=== PATIENT | male | born 1925 | race Caucasian/White ===

== ENCOUNTER → 2016-09-19 | Outpatient (CLI) | payer MEDICARE, OTHER ==
[~2016-09-19] MED LIST: ASCO500T9 PO; DOCU100T PO; HYDR-4246 PO; IOHEXOL 350 MG/ML 75ml INJECTION ONE; NORMAL SALINE 100 ML ONE; OXYB5TAB10 PO; SALINE FLUSH 10ml SYRINGE ONE; TAMS-1 PO; WARF3TAB29 PO; WARF4TAB41 PO
[2016-09-19 08:50] LABS: HCT - HEMATOCRIT 46.8 % (41-53); HGB - HEMOGLOBIN 15.5 GM/DL (13.5-17.5); MEAN CORPUSCULAR HGB 30.5 UUG (26-34); MEAN CORPUSCULAR HGB CONC(MCHC 33.1 GM/DL (31-37); MEAN CORPUSCULAR VOLUME 92.1 UM3 (80-100); MEAN PLATELET VOLUME 8.9 UM3 (9.4-12.4); RED BLOOD COUNT 5.08 M/MM3 (4.50-5.90)
[2016-09-19 08:59] LABS: ANION GAP 10 MEQ/L (5-15); BUN/CREATININE RATIO 13 RATIO (6-26); CHLORIDE 103 MEQ/L (98-107); CO2 - CARBON DIOXIDE 28 MEQ/L (22-30); CREATININE 1.2 MG/DL (0.8-1.5); GLOMERULAR FILTRATION RATE 57; GLUCOSE 98 MG/DL (75-110); POTASSIUM 4.5 MEQ/L (3.6-5); SODIUM 141 MEQ/L (134-144)
[2016-09-19 09:15] LABS: WBC - WHITE BLOOD COUNT 25.7 T/MM3 (4.5-11.0)
[2016-09-19 09:28] LABS: EOSINOPHILS # (MANUAL) 0.3 T/MM3 (0-0.5); LYMPHOCYTES # (MANUAL) 19.5 T/MM3 (1-4.8); NEUTROPHILS #(MANUAL)-ABSOLUTE 5.9 T/MM3 (1.8-7.7); SMUDGE CELLS 1+; TOTAL CELLS COUNTED 100 %
[2016-09-19 09:29] LABS: BURR CELLS 1+; OVALOCYTES 1+; POIKILOCYTOSIS 1+
--- NOTE | 2016-09-19 11:39 | DI ---
Indication: ITS.REASON: SUDDEN ONSET BLINDNESS OD PROCEDURE: CTA head and neck W/WO CONTRAST: Encounter: Initial Comparison: Head CT dated June 26, 2016 Technique: Axial CT angiography of the head and neck was performed with and without contrast. Coronal and sagittal two-dimensional reformatted images were created and reviewed. Three-dimensional surface shaded volume rendered imaging of the arterial vasculature of the head and neck and [employer] [facility] [employer] was created by the technologist on a dedicated workstation under the direction of the interpreting radiologist and reviewed. Automated Exposure Control and Iterative Reconstruction dose reducing techniques were utilized. Contrast: Omnipaque 300 74mL Findings: CT angiogram of the neck with and without contrast: Scattered bilateral upper lobe pulmonary nodules ranging from 3 to 7 mm in size. Patulous dilated esophagus containing debris. Thyroid gland is grossly unremarkable. Scattered mediastinal lymph nodes are not pathologically enlarged. Atherosclerotic plaque in both carotid bulbs and proximal ICAs. Postcontrast images show a two-vessel aortic arch, a normal anatomic variant. Evaluation is somewhat limited due to patient body habitus and attenuation artifact. Narrowing of the right internal carotid artery at its origin. The remaining luminal diameter is approximately 1 mm compared to a more normal vessel diameter of 5 mm more cranially yielding an 80% stenosis. Left ICA origin is also narrowed to 2 mm compared to 5 mm more cranially consistent with a 60% stenosis by an NASCET criteria. No occlusion or aneurysm identified. No additional areas of stenosis appreciated. The left vertebral artery is dominant. There is no significant stenosis seen in either vertebral artery. Impression: 1. 80% right proximal ICA stenosis with 60% left proximal ICA stenosis by NASCET criteria. 2. Small bilateral upper lobe pulmonary nodules could be due to metastases or granulomas. Dedicated chest CT may be helpful for further evaluation. CTA head with and without contrast: Noncontrast images show no gross intracranial hemorrhage, mass effect or midline shift. Moderate generalized atrophy. Postcontrast imaging shows no evidence of intracranial aneurysm or vascular occlusion. Atherosclerotic plaque in the carotid siphons with mild areas of stenosis. Posterior circulation is unremarkable. Vertebrobasilar system is grossly normal. No arterially enhancing mass lesions appreciated. Bone windows show no acute fractures. Left frontoethmoidal sinus opacification. Impression: No acute intracranial abnormality. No evidence of aneurysm or occlusion. .
== END ==
LOC: IMA 08:19
PROVIDERS: ATTEND Internal Medicine Cardiovascular Disease
DX: I65.23 Occlusion and stenosis of bilateral carotid arteries (principal); R91.8 Other nonspecific abnormal finding of lung field; H53.131 Sudden visual loss, right eye
CPT/HCPCS: 36415; 70496; 70498; 80048; 85025; 85652; J7050; Q9967

== ENCOUNTER 2017-05-05 12:59 | Observation (INO) ==
--- NOTE | 2017-05-05 13:15 | Emergency Department Report ---
General Adult HPI - General Chief complaint: Fever Stated complaint: urinary retention Time Seen by Provider: 05/05/17 13:12 Source: patient, family () Mode of arrival: EMS Limitations: no limitations - History of Present Illness HPI narrative: He is brought in by EMS today from his own home where he lives with his . She states that he has been having some trouble with increased weakness the last few days. Today he was trying to transfer from the bed to his chair and fell to the floor. Does not have any injury but she was unable to assist him to get up. She called for EMS. He does have a tovar catheter secondary to trouble with urinary retention. This was placed in ER 4 days ago. Onset (ago): day(s) (for the last 2 days) Radiation: non-radiation Severity: moderate Consistency: constant Relieving factors: none Exacerbating factors: movement Associated symptoms: fever/chills (low grade temp), weakness Treatments prior to arrival: none - Related Data Home Medications Medication Instructions Recorded Confirmed Ascorbic Acid [Vitamin C] 500 mg PO DAILY #0 06/26/16 05/05/17 Docusate Sodium 100 mg PO DAILY #0 06/26/16 05/05/17 Tamsulosin HCl [Flomax] 0.4 mg PO HS #0 06/26/16 05/05/17 Hydrocodone/APAP 5/325 [[place] 1 tab PO Q6H PRN 05/05/17 05/05/17 5/325] Triamcinolone Acetonide 1 applicatio TOP BID PRN 05/05/17 05/05/17 Warfarin [Coumadin] 2 mg PO ROBERTSON@1700 05/05/17 05/05/17 Warfarin [Coumadin] 3 mg PO MOTUWETHFRSA@1700 05/05/17 05/05/17 Allergies Allergy/AdvReac Type Severity Reaction Status Date / Time Penicillins Allergy Unknown REDNESS, Verified 05/05/17 13:22 SWELLING Review of Systems Constitutional: Reports: fever, chills, weakness ENT: Denies: ear pain, throat pain, congestion Cardiovascular: Denies: chest pain, palpitations, dyspnea on exertion, edema Respiratory: Denies: cough, dyspnea, wheezes Gastrointestinal: Denies: abdominal pain, nausea, vomiting, diarrhea Genitourinary: Reports: other (tovar catheter in place) Integumentary: Denies: rash Neurological: Reports: weakness. 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) Chronic atrial fibrillation (Chronic Medical) Post herpetic neuralgia (Chronic Medical) Left arm Pulmonary nodules (Chronic Medical) Upper lobe Venous stasis (Chronic Medical) 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 (Resolved Medical) Personal history of pulmonary embolism (Resolved Medical) Acute retention of urine (Inactive Medical) Family History: Family History Father , Age 70 Parkinson's disease Mother , Age 92 Heart disease Sister Myocardial infarction Daughter Celiac disease Daughter Hypertension Son Coronary artery disease Hypertension Son Coronary artery disease - Social History Smoking status: Never smoker Physical Exam - Limitations Limitations: no limitations - General General appearance: alert, in no apparent distress - Normal Exams: Neck:: Full range of motion, without adenopathy, JVD, bruits or thyromegaly Chest/Respirations:: Clear all ceja, with good airflow, and symmetry bilaterally Cardiovascular:: Regular rate and rhythm, without murmur or gallop, Pulses 2+ all extremities, capillary refill, <2 seconds all extremities Abdomen:: Bowel sounds positive, soft, non-tender, non-distended, no hepatosplenomegaly, masses or bruits noted Lymphatic:: No lymphadenopathy, or lymphedema noted Integumentary:: No rashes, hives, or bruising noted Neurological:: Patient is alert, and oriented Psychiatric:: Patient exhibits, appropriate attention, emotion and affect Course Vital Signs Temperature 98.1 F 05/05/17 13:15 Pulse Rate 85 05/05/17 13:15 Respiratory Rate 28 H 05/05/17 13:15 Blood Pressure 115/57 05/05/17 13:15 Pulse Oximetry 97 05/05/17 13:15 Temperature 98.1 F 05/05/17 13:15 Pulse Rate 91 05/05/17 15:00 Respiratory Rate 22 05/05/17 15:00 Blood Pressure 131/78 05/05/17 15:00 Pulse Oximetry 96 05/05/17 15:00 Medical Decision Making - MDM Narrative Medical decision making narrative: Chest xray today was negative. He does have UTI on labs. WBC is elevated but without left shift. He does have history of CLL. Given his symptoms and reported fever did discuss with Dr Palafox. Will place in OBS at this time and monitor labs and vitals. His daughter does request that we removed the tovar as this is likely the source of infection. - Differential Diagnosis DD: UTI, Sepsis, hypo/hypernatremia, hypo/hyperkalemia, generalized weaknes - Lab Data Result diagrams: 05/05/17 13:23 05/05/17 13:23 Lab Results 05/05/17 05/05/17 05/05/17 Range/Units 13:23 13:23 13:23 WBC 26.6 H* (4.5-11.0) T/MM3 RBC 4.44 L (4.50-5.90) M/MM3 Hgb 13.7 (13.5-17.5) GM/DL Hct 41.4 (41-53) % MCV 93.2 (80-100) UM3 MCH 30.9 (26-34) UUG MCHC 33.1 (31-37) GM/DL RDW Std Deviation 44.4 (36.9-50.2) FL Plt Count 213 (130-400) T/MM3 MPV 9.3 L (9.4-12.4) UM3 Immature Gran % (Auto) Not performed Neut % (Auto) Not performed Lymph % (Auto) Not performed [place] % (Auto) Not performed Eos % (Auto) Not performed Baso % (Auto) Not performed Neut # (Auto) Not performed Lymph # (Auto) Not performed [place] # (Auto) Not performed Eos # (Auto) Not performed Baso # (Auto) Not performed Abs Immat Gran (auto) Not performed Neutrophils % (Manual) 29.0 L (33-66) % Lymphocytes % (Manual) 69.0 H (23-45) % Monocytes % (Manual) 1.0 (0-9.0) % Eosinophils % (Manual) 1.0 (0-4) % Neutrophils # (Manual) 7.7 (1.8-7.7) T/MM3 Lymphocytes # (Manual) 18.4 H (1-4.8) T/MM3 Monocytes # (Manual) 0.3 (0-0.8) T/MM3 Eosinophils # (Manual) 0.3 (0-0.5) T/MM3 Smudge Cells 1+ RBC Morph Comment Normal INR 3.58 H (0.99-1.21) Turbidity < 20 (0-20) Sodium 132 L (134-144) MEQ/L Potassium 4.9 (3.6-5) MEQ/L Chloride 100 (98-107) MEQ/L Carbon Dioxide 25 (22-30) MEQ/L Anion Gap 7 (5-15) MEQ/L BUN 12.0 (9-20) MG/DL Creatinine 1.0 (0.8-1.5) MG/DL GFR Calculation 70 BUN/Creatinine Ratio 12 (6-26) RATIO Glucose 119 H (75-110) MG/DL Calculated Osmolality 256 L (261-280) MOSM/KG Calcium 8.5 (8.4-10.2) MG/DL Total Bilirubin 1.30 (0.20-1.30) MG/DL Icterus Index < 2 (0-7) AST 20 (17-59) U/L ALT 27 (21-72) U/L Alkaline Phosphatase 71 (38-126) U/L Troponin I < 0.012 (0-0.12) ng/ml Total Protein 6.6 (6.3-8.2) G/DL Albumin 3.8 (3.5-5.0) G/DL Globulin 2.8 (2.4-3.6) G/DL Albumin/Globulin Ratio 1.4 (1.1-2.2) RATIO Plasma Lactate (0.6-2.2) MMOL/L Procalcitonin NG/ML Specimen Hemolysis < 15 (0-25) Ur Collection Type Urine Color (YELLOW) Urine Clarity Urine pH (5.0-8.0) Ur Specific [place] (1.015-1.025) Urine Protein (NEGATIVE) Urine Glucose (UA) (NEGATIVE) Urine Ketones (NEGATIVE) Urine Occult Blood (NEGATIVE) Urine Nitrate (NEGATIVE) Urine Bilirubin (NEGATIVE) Urine Urobilinogen (NORMAL) EU/DL Ur Leukocyte Esterase (NEGATIVE) Urine RBC (0-3) /HPF Urine WBC (0-5) /HPF Ur Transition Epith Cell /HPF Urine Bacteria (NEGATIVE) Ur Culture Indicated? 05/05/17 05/05/17 05/05/17 Range/Units 14:08 14:31 14:31 WBC (4.5-11.0) T/MM3 RBC (4.50-5.90) M/MM3 Hgb (13.5-17.5) GM/DL Hct (41-53) % MCV (80-100) UM3 MCH (26-34) UUG MCHC (31-37) GM/DL RDW Std Deviation (36.9-50.2) FL Plt Count (130-400) T/MM3 MPV (9.4-12.4) UM3 Immature Gran % (Auto) Neut % (Auto) Lymph % (Auto) [place] % (Auto) Eos % (Auto) Baso % (Auto) Neut # (Auto) Lymph # (Auto) [place] # (Auto) Eos # (Auto) Baso # (Auto) Abs Immat Gran (auto) Neutrophils % (Manual) (33-66) % Lymphocytes % (Manual) (23-45) % Monocytes % (Manual) (0-9.0) % Eosinophils % (Manual) (0-4) % Neutrophils # (Manual) (1.8-7.7) T/MM3 Lymphocytes # (Manual) (1-4.8) T/MM3 Monocytes # (Manual) (0-0.8) T/MM3 Eosinophils # (Manual) (0-0.5) T/MM3 Smudge Cells RBC Morph Comment INR (0.99-1.21) Turbidity (0-20) Sodium (134-144) MEQ/L Potassium (3.6-5) MEQ/L Chloride (98-107) MEQ/L Carbon Dioxide (22-30) MEQ/L Anion Gap (5-15) MEQ/L BUN (9-20) MG/DL Creatinine (0.8-1.5) MG/DL GFR Calculation BUN/Creatinine Ratio (6-26) RATIO Glucose (75-110) MG/DL Calculated Osmolality (261-280) MOSM/KG Calcium (8.4-10.2) MG/DL Total Bilirubin (0.20-1.30) MG/DL Icterus Index (0-7) AST (17-59) U/L ALT (21-72) U/L Alkaline Phosphatase (38-126) U/L Troponin I (0-0.12) ng/ml Total Protein (6.3-8.2) G/DL Albumin (3.5-5.0) G/DL Globulin (2.4-3.6) G/DL Albumin/Globulin Ratio (1.1-2.2) RATIO Plasma Lactate 1.2 (0.6-2.2) MMOL/L Procalcitonin < 0.05 NG/ML Specimen Hemolysis (0-25) Ur Collection Type Urine, tovar chronic Urine Color Yellow (YELLOW) Urine Clarity Sl cloudy Urine pH 7.0 (5.0-8.0) Ur Specific [place] 1.015 (1.015-1.025) Urine Protein 1+ A (NEGATIVE) Urine Glucose (UA) Negative (NEGATIVE) Urine Ketones Negative (NEGATIVE) Urine Occult Blood 3+ A (NEGATIVE) Urine Nitrate Positive A (NEGATIVE) Urine Bilirubin Negative (NEGATIVE) Urine Urobilinogen 1.0 (NORMAL) EU/DL Ur Leukocyte Esterase 1+ A (NEGATIVE) Urine RBC 30-50 H (0-3) /HPF Urine WBC 1-3 (0-5) /HPF Ur Transition Epith Cell 1-3 /HPF Urine Bacteria 3+ H (NEGATIVE) Ur Culture Indicated? Cult reflexed &setup - Radiology Data Radiology results reviewed: Yes: I reviewed the patient's radiology results. Date of Exam: 05/05/17 Ordering Provider: Marisol Reyes APRN Type of Exam(s): XR chest 1V Reason for Exam(s): fever, shortness of breath Indication: fever, shortness of breath PROCEDURE: XR chest 1V: Encounter: Initial Comparison: None. Findings: There is cardiomegaly and pulmonary vascular congestion without definite overt interstitial pulmonary edema. There is mild elevation of the right diaphragm. There is moderate degenerative disc disease of the thoracic spine. Trachea is midline. There is prominence of the right paratracheal soft tissues which is probably vascular. Impression: Cardiomegaly and poor may vascular congestion without overt CHF. . Disposition Clinical Impression: Urinary tract infection Qualifiers: Urinary tract infection type: acute cystitis Hematuria presence: without hematuria Qualified Code(s): N30.00 - Acute cystitis without hematuria Disposition: 02 [place] [facility] [place]position: 16:13 - Seen By: midlevel
--- NOTE | 2017-05-05 13:52 | XRay Report ---
Indication: fever, shortness of breath PROCEDURE: XR chest 1V: Encounter: Initial Comparison: None. Findings: There is cardiomegaly and pulmonary vascular congestion without definite overt interstitial pulmonary edema. There is mild elevation of the right diaphragm. There is moderate degenerative disc disease of the thoracic spine. Trachea is midline. There is prominence of the right paratracheal soft tissues which is probably vascular. Impression: Cardiomegaly and poor may vascular congestion without overt CHF. .
--- OUTSIDE RECORDS SUMMARY | 2017-05-05 13:59 | External Medical Summary ---
:1925 Author Organization [employer] Care Team Providers Name Role Phone Amanda Gonzalez Provider Role Unavailable Allergies, Adverse Reactions, Alerts Substance Reaction Event Type PCN Info Not Available Non Drug Allergy Problems Problem Type Condition Code Onset Dates Condition Status Assessment Dyspnea, unspecified R06.00 Active Problem Pulmonary emboli I26.99 Active Problem Angina pectoris I20.9 Active Problem Atrial fibrillation I48.91 Active Assessment Pulmonary emboli I26.99 Active Assessment Angina pectoris I20.9 Active Problem Dyspnea, unspecified R06.00 Active Assessment Atrial fibrillation I48.91 Active Medications Medication Code System Code Instructions Start End Date Status Dosage Date Vitamin C NDC 05661-87 500 MG Orally 1 tablet 44-20 Once a day Cataplex NDC 0 1 tablet qd E2 Oxybutynin NDC 29165-34 5 MG Orally 1 tablet Chloride 00-20 Twice a day Docusate Sodium NDC 95982-15 100 MG Orally 1 capsule 65-30 prn as needed Tamsulosin NDC 0 0.4 MG Once day 1 tablet Warfarin Sodium NDC 96081-50 4 MG Orally as 1 tablet 04-01 dir. Hydrocodone-Dru NDC 94692-86 5-325 MG Orally 1 tablet as taminophen 12-20 prn needed Procedures Procedure Coding System Code Date Office Visit, Est Pt., Level 4 CPT-4 41008 August 16, 2015 ELECTROCARDIOGRAM, COMPLETE CPT-4 87553 August 16, 2015 Vital Signs Date/Time: August 16, 2015 BMI 26.92 Index Weight 193 lbs Height 71 in Cardiac Monitoring Heart Rate 77 /min Oximetry 91% % Blood Pressure Diastolic 70 mm Hg Blood Pressure Systolic 110 mm Hg Results No Known Results Summary Purpose [employer] Submission
[2017-05-05] MEDS ORDERED: LEVOFLOXACIN PB 750 MG/150 ML BAG IV SCH (14:15)
[2017-05-05] MEDS ORDERED: NS 1,000 ML IV ONE (14:21)
[2017-05-05] MEDS ORDERED: CEFTRIAXONE (ER USE ONLY) 1 GM in NS 100 ML IV ONE (14:29)
--- NOTE | 2017-05-05 15:44 | History & Physical Report ---
History of Present Illness Date: 05/05/17 Chief complaint: weak legs HPI: Fareed Land is an 89 year old male who resides at [facility]. He has a hx of dementia and most of the history is obtained from his and daughter. He had a cystoscopy by Dr. Tao on Apr 30 to evaluate for leg weakness and retention. The following night, he hardly slept at all. He presented to [facility] the morning of 05/02/17 with abdominal pain and urinary retention, and a Rose was inserted. He was not Rx abx at that time. Over the weekend, leg weakness persisted. 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 He wasn't eating or drinking well, but denies nausea/vomiting. He's been c/o left side abdominal pain, which tends to occur when he gets sick. His urine has been very dark in color and output has decreased. They deny seeing any blood or clots. He has not had any diarrhea or constipation. No fever/ chills at home but they report a fever upon arrival to the ED. They deny any respiratory or URI symptoms. He denies chest pain, but has a hx of an irregular HR (A-fib) for which he takes Coumadin. Family hasn't noticed any abnormal behaviors or mental status changes other than his baseline confusion. No dysphagia, unilateral weakness or paresthesias. He denies back pain or injuries. 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 Because of his leg weakness, he was re-eval in the eD on 05/05/17. Labs showed leukocytosis but at baseline (26.6 - hx of CLL ) with lymphocyte predominance. He was mildly hyponatremic with Na of 132. INR was supratherapeutic at 3.58. CXR did not show overt pneumonia. UA from cath showed hematuria and bacteruria with positive nitrites, and was sent for culture. Lactate and procalcitonin were unremarkable. He was given a dose of Rocephin and 1L NS. Dr. Palafox was notified and the patient was admitted to observation status. Review of Systems All systems PM: 10-point ROS was reviewed, no additional remarkable complaints except - Constitutional Constitutional: Present: as per HPI - EENMT Eyes: Present: loss of vision (right eye blind - chronic) Mouth/Throat: Present: as per HPI - Cardiovascular Cardiovascular: Present: as per HPI Vascular: Absent: pedal edema - Respiratory Respiratory: Present: as per HPI - Gastrointestinal Gastrointestinal: Present: as per HPI - Genitourinary Genitourinary: Present: as per HPI - Musculoskeletal Musculoskeletal: Present: as per HPI - Integumentary/Breasts Integumentary: Absent: wounds - Neurological Neurological: Present: as per HPI - Psychiatric Psychiatric: Present: as per HPI - Endocrine Endocrine: Absent: excessive sweating - Hematologic/Lymphatic Hematologic/Lymphatic: Present: easy bleeding, easy bruising PFSH 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 B/L knees. B/L cataracts Family History: Family History Father , Age 70 Parkinson's disease Mother , Age 92 Heart disease Sister Myocardial infarction Daughter Celiac disease Daughter Hypertension Son Coronary artery disease Hypertension Son Coronary artery disease - Social History Smoking status: Never smoker Substance use type: does not use Alcohol intake frequency: does not drink Social history: PCP: Dr. Mathews Moved to [place] from [place] in Jul, 2015 Does not see an oncologist Medications Home Medications Medication Instructions Recorded Confirmed Type Ascorbic Acid [Vitamin C] 500 mg PO DAILY #0 06/26/16 05/05/17 History Docusate Sodium 100 mg PO DAILY #0 06/26/16 05/05/17 History Tamsulosin HCl [Flomax] 0.4 mg PO HS #0 06/26/16 05/05/17 History Hydrocodone/APAP 5/325 [[place] 1 tab PO Q6H PRN 05/05/17 05/05/17 History 5/325] Triamcinolone Acetonide 1 applicatio TOP BID PRN 05/05/17 05/05/17 History Warfarin [Coumadin] 2 mg PO ROBERTSON@1700 05/05/17 05/05/17 History Warfarin [Coumadin] 3 mg PO MOTUWETHFRSA@1700 05/05/17 05/05/17 History Allergies Allergy/AdvReac Type Severity Reaction Status Date / Time Penicillins Allergy Unknown REDNESS, Verified 05/05/17 13:22 SWELLING Exam Vital Signs: Temperature 98.1 F 05/05/17 13:15 Pulse Rate 91 05/05/17 15:00 Respiratory Rate 22 05/05/17 15:00 Blood Pressure 131/78 05/05/17 15:00 Pulse Oximetry 96 05/05/17 15:00 Telemetry Rhythm: A-fib - Constitutional Present: no acute distress, well nourished, well developed - Routine HEENT Exam Head: Present: normocephalic Eye: Absent: conjunctival icterus, scleral injection ENT: Present: mucous membranes dry, oropharynx clear. Absent: dentition normal (some decay) - Routine Neck Exam Present: supple - Routine Respiratory Exam Present: CTA bilaterally - Routine Cardiovascular Exam Present: irregularly irregular - Routine Abdominal Exam Present: normoactive bowel sounds, tenderness (LUQ and LLQ), distended, guarding (LLQ - mild) - Routine Extremities Exam Present: no edema, pulses intact - Routine Back/Spine/Pelvis Exam Back/Spine: Absent: vertebral tenderness - Routine Skin Exam Present: intact, dry, warm. Absent: rash - Routine Neurological Exam Present: alert, CN II-XII intact, moving all extremities, vision grossly intact , hearing grossly intact, normal speech. 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 PCP: Dr. Mathews. Possible UTI -Rocephin -consider consulting Dr. Tao Abdominal tenderness -CT abd/pelvis -Check lipase; LFTs normal; renal function normal Anorexia -check prealbumin, TSH Hyponatremia -IVF Leg weakness -Supportive care -consult PT/OT Leukocytosis, CLL -WBC elevated at baseline -consider referral to oncologist Advanced Directives -Daughters are DPOAs; + living will -Sis would like him to be DNR and dtr in agreement - he doesn't have signed form from [facility] - will need more discussion with both DPOAs before making DNR 05/05/17: Vivienne Have independently interviewed and examined pt. Chart reviewed. Case discussed with ED provider, family, and my BENEFITS DIRECTOR. Care plan developed with my supervision; agree with above. Patient presents to ED for evaluation of leg weakness. Problems have been increasing over last month. Was seen in Dr Mathews's office for increasing weakness and urinary difficulty - concern for UTI but UA unremarkable. Seen by urology. Underwent cystoscopy on 04/30 which was unremarkable. Has had several recent UA that were unremarkable. Patient has been on Oxybutynin for several years-looks like this was stopped recently. Did present to ED on 05/02 - urinary retention. Bladder scan with 251cc - patient not able to void. Rose place (no UA done at that time). Since discharge from ED, legs have continued to be weak. Oral drive decreased. No eating or drinking well. No nausea. Does report LUQ pain (family notes he gets this discomfort when he is sick). Evaluated in ED today. Urine does show evidence for infection. Sodium decreased at 132. Patient placed in OBS status for further evaluation. Lungs: decreased, no crackles or wheezes. CV: irregularly irregular Ext: no edema Plan: OBS admission. Rocephin for urinary coverage - recommend against Levaquin due to his dementia. Will remove Rose secondary to UTI-bladder scans to assess for retention. IVF of NS at 50cc/hr to help with low serum sodium and maintain hydration. Continue Flomax-stop oxybutynin (nursing confirms that pt has not been using). PT/OT to help weakness. Monitor lab. DVT Prophylaxis: Coumadin Resuscitation Status: Full Code Hospital Course Summary Disclaimer: The visit summary below is not to be considered part of the above Progress Note. 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 PCP: Dr. Mathews. Possible UTI -Rocephin -consider consulting Dr. Tao Abdominal tenderness -CT abd/pelvis -Check lipase; LFTs normal; renal function normal Anorexia -check prealbumin, TSH Hyponatremia -IVF Leg weakness -Supportive care -consult PT/OT Leukocytosis, CLL -WBC elevated at baseline -consider referral to oncologist Advanced Directives -Daughters are DPOAs; + living will -Sis believes he's DNR but on an accompanying form this is contradictory - will clarify from [facility]
[2017-05-05] MEDS ORDERED: ONDANSETRON 4 MG/2 ML INJECTION IVP PRN (16:09)
[2017-05-05 16:12] VITALS: BMI 28.1
[2017-05-05] MEDS ORDERED: SALINE FLUSH 10ml SYRINGE ONE (16:24)
[2017-05-05] MEDS ORDERED: IOHEXOL 300mg/ml 100ml INJECTION ONE (16:24)
[2017-05-05] MEDS ORDERED: NS 100 ML ONE (16:24)
[2017-05-05] MEDS: NS 1,000 ML IV SCH (17:07)
--- NOTE | 2017-05-05 17:32 | Pharmacy Consult ---
Pharmacy Consult-Warfarin - Consult Information 89 y.o. Male with history of a. fib and chronic anticoagulation with warfarin. Warfarin per pharmacy protocol ordered. Home warfarin dose 3 mg po daily except 2 mg on Friday. goal INR range= 2.0 to 3.0 INR on admit = 3.58, will give no warfarin dose today. Levaquin and ceftriaxone given in ER. both of these antibiotics have the potential to interact with warfarin and may increase INR and risk of bleeding. Thank you for the Warfarin protocol, Aviva Napoles RPh
[2017-05-05] MEDS ORDERED: TAMSULOSIN 0.4 MG CAPSULE PO SCH (21:00)
[2017-05-05] MEDS: HYDROCODONE/APAP 5mg/325mg TABLET PO PRN (21:47)
[2017-05-05] MEDS ORDERED: HALOPERIDOL 5 MG/ML INJECTION IVP ONE (23:45)
[2017-05-06] MEDS ORDERED: HALOPERIDOL 5 MG/ML INJECTION IVP PRN (00:43)
[2017-05-06] MEDS: HYDROCODONE/APAP 5mg/325mg TABLET PO PRN (05:44)
[2017-05-06 07:35] VITALS: TEMP 97.8
--- NOTE | 2017-05-06 07:44 | Pharmacy Consult ---
Pharmacy Consult-Warfarin - Laboratory Information 05/06/17 04:48 INR 4.39 H - Consult Information 89 y.o. Male with history of a. fib and chronic anticoagulation with warfarin. Warfarin per pharmacy protocol ordered. Home warfarin dose 3 mg po daily except 2 mg on Friday. goal INR range= 2.0 to 3.0 INR on admit 05/05/17 = 3.58 05/06/17 = 4.39 Will continue to hold warfarin and monitor INR. Thank you. Peyton Parikh, PharmD
--- NOTE | 2017-05-06 08:57 | CT Scan Report ---
Indication: LUQ, LLQ tenderness PROCEDURE: CT abdomen pelvis w con: Encounter: Initial Comparison: None Technique: Axial CT images were performed through the abdomen and pelvis after the administration of intravenous contrast. Coronal and sagittal two-dimensional reformats. Automated Exposure Control and Iterative Reconstruction dose reducing techniques were utilized. Contrast: Omnipaque 300 99 mL Findings: Consolidation in the right lower lobe. Patulous esophagus. Elevated right hemidiaphragm. Small probable cysts within the liver. Colonic interposition anterior to the right lobe of the liver. The gallbladder is grossly unremarkable. No bile duct dilatation. The spleen is unremarkable. There is prominence of the main pancreatic duct within the atrophic fatty replaced pancreas. No discrete masses seen. The adrenal glands are normal. Small bilateral renal cysts. No abdominal or pelvic lymphadenopathy. The bladder is normal. Prostate is mildly enlarged. Mild colonic diverticulosis without acute diverticulitis. No evidence of a bowel obstruction. Bone windows show degenerative changes in the spine. Impression: 1. No acute disease process seen in the abdomen or pelvis. 2. Right basilar atelectasis or scarring. .
[2017-05-06] MEDS ORDERED: CEFTRIAXONE 1 G in NS 100 ML IV SCH ×2 (09:00)
[2017-05-06] MEDS ORDERED: ASCORBIC ACID 500 MG TABLET PO SCH (09:00)
[2017-05-06] MEDS ORDERED: DOCUSATE SODIUM 100 MG CAPSULE PO SCH (09:00)
[2017-05-06] MEDS ORDERED: HALOPERIDOL 5 MG/ML INJECTION IM PRN (09:17)
--- NOTE | 2017-05-06 12:06 | CT Scan Report ---
Indication: LE weakness, confusion - ? stroke PROCEDURE: CT head/brain wo con: Encounter: Initial Comparison: 03/26/2017 Technique: Axial CT images through the head were performed without contrast. Iterative Reconstruction dose reducing technique was utilized. FINDINGS: Moderate generalized atrophy. The ventricles are prominent but unchanged. There are scattered areas of low attenuation in the white matter which most likely represent changes from chronic microvascular ischemia. The brainstem, cerebellum, and cerebral hemispheres otherwise have a normal morphology and CT attenuation. There is no evidence of midline displacement. No hemorrhage, signs of acute territorial stroke, mass effect, mass lesions, or edema is evident. The visualized portions of the skull base, midface, and calvarium demonstrate no acute abnormality. Chronically opacified left frontal sinus. The tympanic and mastoid cavities appear normal. IMPRESSION: No acute intracranial abnormality or hemorrhage. Stable head CT. .
[2017-05-06] MEDS: NS 1,000 ML IV SCH (13:25)
--- NOTE | 2017-05-06 15:16 | Progress Note ---
- Date 05/06/17 Subjective: F/U: Urinary tract infection, urinary retention Feeling okay today-no f/c. Eating well. No nausea. Not having ab pain. Breathing stable-does not feel he is becoming increasingly SOA or congested. Glad to have Rose out. Did have 500cc in bladder overnight and needed straight cath, but has been voiding with not excessive PVR since. Tolerated therapy. Objective Vital signs: Temperature 97.8 F 05/06/17 07:34 Pulse Rate 87 05/06/17 08:00 Respiratory Rate 16 05/06/17 07:34 Blood Pressure 111/60 05/06/17 07:34 Pulse Oximetry 90 05/06/17 07:34 Height/Weight/BMI: Height 1.78 m Weight 89.2 kg Body Mass Index 28.1 - Constitutional Present: no acute distress, well nourished, well developed, cooperative. Absent : combative - Routine HEENT Exam Head: Present: normocephalic, atraumatic Eye: Present: EOMI, PERRL ENT: Present: mucous membranes moist - Routine Respiratory Exam Present: decreased breath sounds. Absent: rales, respiratory distress, rhonchi , wheezes, crackles - Routine Cardiovascular Exam Present: RRR, no murmur - Routine Abdominal Exam Present: soft, normoactive bowel sounds, non distended, non tender. Absent: guarding - Routine Extremities Exam Present: no edema, pulses intact. Absent: cyanosis, clubbing - Routine Skin Exam Present: dry, warm - Routine Neurological Exam Present: alert, moving all extremities, vision grossly intact, hearing grossly intact, normal speech. Absent: altered mental status - Routine Psychiatric Exam Present: normal affect, cooperative. 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 No act CV. CT ab showing no acute pathology. Urine culture with Coag neg Staph No evidence for SIRS secondary to UTI. Voiding improving - recommend frequent cuing to void to help minimize potential for urinary retention. INR with elevation - hold Coumadin today. Discussed with CM about outpatient PT to help his leg weakness and improve his gait instability. Anticipate discharge to home this afternoon - will stop IVF. DVT Prophylaxis: Coumadin Resuscitation Status: Full Code Hospital Course Summary Disclaimer: The visit summary below is not to be considered part of the above Progress Note. 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 PCP: Dr. Mathews. Possible UTI -Rocephin -consider consulting Dr. Tao Abdominal tenderness -CT abd/pelvis -Check lipase; LFTs normal; renal function normal Anorexia -check prealbumin, TSH Hyponatremia -IVF Leg weakness -Supportive care -consult PT/OT Leukocytosis, CLL -WBC elevated at baseline -consider referral to oncologist Advanced Directives -Daughters are DPOAs; + living will -Sis believes he's DNR but on an accompanying form this is contradictory - will clarify from [facility] 05/06/17 CT scan of brain done secondary to leg weakness to exclude stroke-atrophy and chronic changes noted. No act CV. CT ab showing no acute pathology. Urine culture with Coag neg Staph No evidence for SIRS secondary to UTI. Voiding improving - recommend frequent cuing to void to help minimize potential for urinary retention. Serum sodium normalized to 135. INR with elevation - hold Coumadin today. Discussed with CM about outpatient PT to help his leg weakness and improve his gait instability. Anticipate discharge to home this afternoon - will stop IVF.
[2017-05-06 16:50] VITALS: BP 143/73; PULSE 75; RESP 18; O2SAT 94
--- NOTE | 2017-05-06 17:45 | Discharge Summary ---
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%, 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 History of cerebral infarction Chronic atrial fibrillation Personal history of pulmonary embolism Anticoagulated on warfarin Blindness of right eye; Central retinal artery occlusion 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 Pulmonary nodules Venous stasis Moderate PCM - prealbumin 9.9 Dementia - Laboratory Labs: Admit Lab 05/05/17 13:23 WBC 26.6 H* Hgb 13.7 Hct 41.4 MCV 93.2 Plt Count 213 Neutrophils % (Manual) 29.0 L Lymphocytes % (Manual) 69.0 H Admit Lab 05/05/17 05/05/17 13:23 13:23 Sodium 132 L Potassium 4.9 Chloride 100 Carbon Dioxide 25 Anion Gap 7 BUN 12.0 Creatinine 1.0 GFR Calculation 70 BUN/Creatinine Ratio 12 Glucose 119 H Calculated Osmolality 256 L Calcium 8.5 Total Bilirubin 1.30 AST 20 ALT 27 Troponin I < 0.012 Total Protein 6.6 Albumin 3.8 Globulin 2.8 Albumin/Globulin Ratio 1.4 Prealbumin 9.9 L Lipase 69 TSH 1.54 INR 05/05/17 05/06/17 13:23 04:48 INR 3.58 H 4.39 H 05/06/17 04:48 05/06/17 04:48 - Radiology Radiology: Date of Exam: 05/05/17 PROCEDURE: XR chest 1V Findings: There is cardiomegaly and pulmonary vascular congestion without definite overt interstitial pulmonary edema. There is mild elevation of the right diaphragm. There is moderate degenerative disc disease of the thoracic spine. Trachea is midline. There is prominence of the right paratracheal soft tissues which is probably vascular. Impression: Cardiomegaly and poor may vascular congestion without overt CHF. Date of Exam: 05/05/17 PROCEDURE: CT abdomen pelvis w con Findings: Consolidation in the right lower lobe. Patulous esophagus. Elevated right hemidiaphragm. Small probable cysts within the liver. Colonic interposition anterior to the right lobe of the liver. The gallbladder is grossly unremarkable. No bile duct dilatation. The spleen is unremarkable. There is prominence of the main pancreatic duct within the atrophic fatty replaced pancreas. No discrete masses seen. The adrenal glands are normal. Small bilateral renal cysts. No abdominal or pelvic lymphadenopathy. The bladder is normal. Prostate is mildly enlarged. Mild colonic diverticulosis without acute diverticulitis. No evidence of a bowel obstruction. Bone windows show degenerative changes in the spine. Impression: 1. No acute disease process seen in the abdomen or pelvis. 2. Right basilar atelectasis or scarring. Date of Exam: 05/06/17 PROCEDURE: CT head/brain wo con FINDINGS: Moderate generalized atrophy. The ventricles are prominent but unchanged. There are scattered areas of low attenuation in the white matter which most likely represent changes from chronic microvascular ischemia. The brainstem, cerebellum, and cerebral hemispheres otherwise have a normal morphology and CT attenuation. There is no evidence of midline displacement. No hemorrhage, signs of acute territorial stroke, mass effect, mass lesions, or edema is evident. The visualized portions of the skull base, midface, and calvarium demonstrate no acute abnormality. Chronically opacified left frontal sinus. The tympanic and mastoid cavities appear normal. IMPRESSION: No acute intracranial abnormality or hemorrhage. Stable head CT. History of Present Illness HPI: Fareed Land is an 89 year old male who resides at [facility]. He has a hx of dementia and most of the history is obtained from his and daughter. He had a cystoscopy by Dr. Tao on Apr 30 to evaluate for leg weakness and retention. The following night, he hardly slept at all. He presented to [facility] ED the morning of 05/02/17 with abdominal pain and urinary retention, and a Rose was inserted. He was not Rx abx at that time. Over the weekend, leg weakness persisted. He seemed weak, and had to be reminded to bean picker his legs when he walked. He wasn't eating or drinking well, but denies nausea/vomiting. He's been c/o left side abdominal pain, which tends to occur when he gets sick. His urine has been very dark in color and output has decreased. They deny seeing any blood or clots. He has not had any diarrhea or constipation. No fever/ chills at home but they report a fever upon arrival to the ED. They deny any respiratory or URI symptoms. He denies chest pain, but has a hx of an irregular HR (A-fib) for which he takes Coumadin. Family hasn't noticed any abnormal behaviors or mental status changes other than his baseline confusion. No dysphagia, unilateral weakness or paresthesias. He denies back pain or injuries. 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 Because of his leg weakness, he was re-eval in the eD on 05/05/17. Labs showed leukocytosis but at baseline (26.6 - hx of CLL ) with lymphocyte predominance. He was mildly hyponatremic with Na of 132. INR was supratherapeutic at 3.58. CXR did not show overt pneumonia. UA from cath showed hematuria and bacteruria with positive nitrites, and was sent for culture. Lactate and procalcitonin were unremarkable. He was given a dose of Rocephin and 1L NS. Dr. Palafox was notified and the patient was admitted to observation status. For complete details of the H&P refer to that document. Objective Vital signs: Temperature 97.8 F 05/06/17 07:34 Pulse Rate 75 05/06/17 16:00 Respiratory Rate 18 05/06/17 16:00 Blood Pressure 143/73 H 05/06/17 16:00 Pulse Oximetry 94 05/06/17 16:00 Height/Weight/BMI: Height 1.78 m Weight 89.2 kg Body Mass Index 28.1 Hospital Course This is a general summary of the patient's hospital course. For more details refer to the complete medical record. Hospital course: 05/05/17 Admit, observation status, under the hospitalist service. PCP: Dr. Mathews. Possible UTI -Rocephin -consider consulting Dr. Tao Abdominal tenderness -CT abd/pelvis -Check lipase; LFTs normal; renal function normal Anorexia -check prealbumin, TSH Hyponatremia -IVF Leg weakness -Supportive care -consult PT/OT Leukocytosis, CLL -WBC elevated at baseline -consider referral to oncologist Advanced Directives -Daughters are DPOAs; + living will -Sis believes he's DNR but on an accompanying form this is contradictory - will clarify from [facility] 05/06/17 CT scan of brain done secondary to leg weakness to exclude stroke-atrophy and chronic changes noted. No act CV. CT ab showing no acute pathology. Urine culture with Coag neg Staph No evidence for SIRS secondary to UTI. Voiding improving - recommend frequent cuing to void to help minimize potential for urinary retention. Serum sodium normalized to 135. INR with elevation - hold Coumadin today. Discussed with CM about outpatient PT to help his leg weakness and improve his gait instability. Will discharge to home - stable. Encourage frequent voiding. Continue Flomax. Will initiate cephalexin 500mg TID for 5 days for urinary coverage (start ). Culture pending at discharge. Hold Coumadin on 05/07/17 as INR elevated today. F/U with Dr Mathews in 1 week. See orders for details. Time spent with patient: discharge greater than 30 minutes DVT Prophylaxis: Coumadin Discharge Plan - Discharge Disposition Discharge Date: 05/06/17 Disposition: 01 Discharged Home, Self-Care *Condition: Stable Reason For Visit (Visit label in EMR): weakness,fever,UTI - Discharge Medications *Discharge Medications: New CephALEXin [Keflex] 500 mg PO TID #15 cap Continue Docusate Sodium 100 mg PO DAILY #0 Warfarin [Coumadin] 2 mg PO ROBERTSON@1700 Hydrocodone/APAP 5/325 [Stand[place] 5/325] 1 tab PO Q6H PRN PRN Reason: Pain Tamsulosin HCl [Flomax] 0.4 mg PO HS #0 Triamcinolone Acetonide 1 applicatio TOP BID PRN PRN Reason: Prn Orders Warfarin [Coumadin] 3 mg PO MOTUWETHFRSA@1700 No Action Ascorbic Acid [Vitamin C] 500 mg PO DAILY #0 - Discharge Packet/Instructions *Diet: Regular *Activity: As tolerated *Pain Management/Treatment: Tylenol as needed *Wound Care: n/a Additional Instructions: Encourage uriniation about every 3-4 hours when awake. May start cephalexin on 05/07/17. Hold Coumadin on 05/07/17 as INR elevated *Expected Signs/Symptoms: Improvement of strength with therapy. Improvement of urinary flow. *Notify Physician if: Temp >100.4. Fevers or chills. Difficulty urinating. *During Business Hours Contact: Dr Mathews *After Business Hours Contact: Call [facility] and have Dr Mathews or his covering provider contacted. *Pending Lab/Results: Follow up w/your PCP - Referrals/Follow Up *Referrals/Follow Up: Pantera Mathews MD [Family Provider] - 1 Week (Hospital follow up. ) - Patient Handouts Patient Handouts: Urinary Tract Infection in Men (GEN), Fever in Adults (GEN), Weakness (GEN) - Dismissal Complete Discharge Instructions are:: Complete Attestation Narriative - Attestation Attestation Narrative: 05/06/17 17:53 I have independently interviewed and examined patient prior to discharge. See my progress note from today for details. Medically stable for discharge to home.
== END 2017-05-06 18:15 | disposition home or self-care (01) ==
LOC: ED 12:59 → MED 12:59
PROVIDERS: ADMIT Hospitalist; ATTEND Hospitalist